=== PATIENT | male | born 1940 | race Caucasian/White ===

== ENCOUNTER → 2020-01-20 | Outpatient (CLI) | payer MEDICARE, BC ==
[~2020-01-20] MED LIST: ADULT LOW DOSE81 MG PO; FISH OIL 1,0001 EAC5 PO; FOLIC ACID PO; IBUPROFEN 200200 M1 PO; IBUPROFEN 400400 M1 PO; PERCOCET 5-3251 EACH PO; PRILOSEC 20 MG20 MG PO; PROMETHAZINE12.5 M1 PO
== END ==
LOC: M.RAD 11:00
DX: R13.12 Dysphagia, oropharyngeal phase (principal)

== ENCOUNTER → 2020-04-18 | Outpatient (CLI) | payer MEDICARE, BC ==
[2020-04-18 10:16] LABS: CREATININE 1.1 mg/dL (0.6-1.3)
== END ==
LOC: M.CT 04-06 16:06 → M.LAB 09:46 → M.CT 11:00
PROVIDERS: ATTEND Internal Medicine
DX: N20.0 Calculus of kidney (principal); I49.5 Sick sinus syndrome; R31.9 Hematuria, unspecified; E11.9 Type 2 diabetes mellitus without complications; R91.1 Solitary pulmonary nodule

== ENCOUNTER → 2020-05-01 | Outpatient (CLI) | payer MEDICARE, BC | LOC: M.CT 11:00 | PROVIDERS: ATTEND Internal Medicine | DX: R91.8 Other nonspecific abnormal finding of lung field (principal); I25.10 Atherosclerotic heart disease of native coronary artery without angina pectoris; M47.814 Spondylosis without myelopathy or radiculopathy, thoracic region ==

== ENCOUNTER → 2021-04-25 | Day surgery (SDC) | payer MEDICARE, BC ==
[~2021-04-25] MED LIST changes: +CINNAMON500 MG PO; +FLOMAX0.4 MG PO; +GLUCOTROL5 MG PO; +LIPITOR10 MG PO; +MULTI VITAMIN1 EACH PO; +OMEPRAZOLE20 M1 PO; +VITAMIN B-125000 MCG SUBLING; +VITAMIN D3 COM1 EACH PO
--- NOTE | ~2021-04-25 | PROC ---
[address] [address] PROCEDURE REPORT Name: DANO KIRBY Room: [facility]#: [id number] Admission: 04/25/21 Attend Phys: Trev De La Rosa DO Discharge: Date of : 42 Report #: [id number] THIS REPORT FOR: cc: Davin Beauchamp MD, Meng MD [facility],Medical Records Staff ~ For GI report, please see the Provation report in Perceptive 7 content. By: [id number] Records Staff BILLY /JOSE MIGUEL
[2021-04-25 09:00] LABS: HEMATOCRIT 39.2 % (42.0-52.0); HEMOGLOBIN 13.3 gm/dL (14.0-18.0); MCH 28.1 pg (26.0-34.0); MCV 82.5 fL (80.0-100.0); RBC 4.76 mil/uL (4.50-6.00); RDW-CV 13.4 % (10.5-14.5); WBC 5.1 thou/uL (4.0-11.0)
[2021-04-25 09:06] LABS: CALCIUM 9.1 mg/dL (8.5-10.1); CREATININE 1.1 mg/dL (0.6-1.3); POTASSIUM 3.9 mmol/L (3.5-5.1)
--- NOTE | 2021-04-25 10:24 | EKG ---
[place] [address] ELECTROCARDIOGRAM REPORT Name: DANO KIRBY Room: [facility]#: [id number] Admission: 04/25/21 Attend Phys: Trev De La Rosa, Discharge: Date of : 42 Date of Service: 04/25/21915 Report #: [id number] THIS REPORT FOR: //name// [facility] ED Test Date: 2021-04-25 Test Time: 09:16:08 Pat Name: DANO KIRBY Department: Room: Gender: [place] Operator: [place] : 1940 Requested By: Trev De La Rosa Order Number: [id number] Lamine MD: Oscar Hicks Measurements Intervals [place] Rate: 56 P: [place]: 177 QRS: 5 QRSD: 92 T: -16 QT: 413 QTc: 399 Interpretive Statements Atrial-paced rhythm Borderline T abnormalities, inferior leads Compared to ECG 06/08/2010 08:42:47 ventricular paced beats no longer noted Electronically Signed On 04-25-2021 10:24:16 CDT by Oscar Hicks [email or web address] <ELECTRONICALLY SIGNED> By: Oscar Hicks MD, FACC 04/25/21 1024 0916 5 Oscar Hicks MD, [facility] /EPI
== END | disposition home or self-care (01) ==
LOC: M.SUR 06:58
PROVIDERS: ATTEND Internal Medicine Gastroenterology
DX: Z12.11 Encounter for screening for malignant neoplasm of colon (principal); R12 Heartburn; K57.30 Diverticulosis of large intestine without perforation or abscess without bleeding; K64.4 Residual hemorrhoidal skin tags; K21.9 Gastro-esophageal reflux disease without esophagitis; K44.9 Diaphragmatic hernia without obstruction or gangrene; Z98.890 Other specified postprocedural states; Z88.8 Allergy status to other drugs, medicaments and biological substances; Z79.899 Other long term (current) drug therapy
CPT/HCPCS: 43235; G0121